=== PATIENT | female | born 1985 | race Hispanic/Latino ===

== ENCOUNTER → 2017-02-14 | Outpatient (CLI) | payer OTHER ==
[2017-02-14 09:51] LABS: MEAN CORPUSCULAR HEMOGLOBIN 29.4 pg (27.0-33.0); MEAN CORPUSCULAR HGB CONC 33.4 g/dl (32.0-36.5); MEAN CORPUSCULAR VOLUME 88.1 fl (80.0-96.0); RED CELL DISTRIBUTION WIDTH 12.1 % (11.5-14.5); WHITE BLOOD COUNT 6.3 K/mm3 (4.0-10.0)
[2017-02-14 11:02] LABS: ALBUMIN 3.7 GM/DL (3.2-5.2); ALBUMIN/GLOBULIN RATIO 1.16 (1.00-1.93); ALKALINE PHOSPHATASE 54 U/L (45-117); ALT/SGPT 22 U/L (12-78); ANION GAP 10 MEQ/L (8-16); AST/SGOT 14 U/L (15-37); BILIRUBIN,TOTAL 0.4 MG/DL (0.2-1.0); BLOOD UREA NITROGEN 10 MG/DL (7-18); CALCIUM LEVEL 8.4 MG/DL (8.5-10.1); CARBON DIOXIDE LEVEL 24 MEQ/L (21-32); CHLORIDE LEVEL 108 MEQ/L (98-107); CHOLESTEROL LEVEL 216 MG/DL (<200); CREATININE FOR GFR 0.77 MG/DL (0.55-1.02); GLOMERULAR FILTRATION RATE > 60.0 (>60); GLUCOSE, FASTING 86 MG/DL (70-105); SODIUM LEVEL 142 MEQ/L (136-145); TOTAL PROTEIN 6.9 GM/DL (6.4-8.2); TRIGLYCERIDES LEVEL 179 MG/DL (<150)
== END ==
LOC: M LAB 09:13
PROVIDERS: ATTEND Family Medicine
DX: D64.9 Anemia, unspecified (principal); R53.83 Other fatigue

== ENCOUNTER → 2017-03-09 | Outpatient (CLI) | payer OTHER ==
--- NOTE | 2017-03-09 15:50 | REP ---
REASON: Left sided pain. PRIORS: None. Transvesical imaging only was performed. I have been given no reason why transvaginal imaging was not obtained. The uterus measures 8.4 x 3.6 x 4.5 cm. The parenchymal echo pattern is within normal limits. The endometrial echo complex measures 5 mm in thickness and has an unremarkable appearance. There is no free fluid in the cul-de-sac and there is no free endometrial cavitary fluid. The right ovary measured 2.8 x 2.8 x 4.3 cm. There is a slightly irregular 1.5 cm sized paraovarian cyst and there is a resolving dominant follicle within the right ovary. The right ovarian RI is 0.67. Left ovary measured 3.1 x 2 x 3.8 cm and is within normal limits with an RI of 0.47. Urinary bladder measures 6 x 9 x 4 cm. IMPRESSION: Small cyst as described above. The examination is otherwise unremarkable. Consider 3 month followup if clinically relevant. Signed by Nilson Lovett DO 03/10/2017 09:00 A
== END ==
LOC: M RAD 13:20
PROVIDERS: ATTEND Family Medicine
DX: N83.201 Unspecified ovarian cyst, right side (principal)